=== PATIENT | male | born 1955 | race Caucasian/White ===

== ENCOUNTER → 2019-10-12 | Outpatient (CLI) | payer MEDICARE ==
--- NOTE | 2019-10-12 11:07 | CT ---
EXAMINATION TYPE: CT brain wo con DATE OF EXAM: 10/12/2019 COMPARISON: None HISTORY: Fall CT DLP: 1064.30 mGycm Automated exposure control for dose reduction was used. FINDINGS: There is a soft tissue edema overlying the posterior right parietal lobe. Calvarium intact. No acute fracture. There is mild to moderate generalized degenerative change. Intracranial atherosclerotic changes noted . Low-attenuation the white matter is nonspecific but most typical remote microvascular ischemia. Kingsley cification the central sulcus on the right noted. Likely related to atherosclerotic changes. IMPRESSION: DEGENERATIVE AND NONSPECIFIC WHITE MATTER CHANGES WITH A SOFT TISSUE HEMATOMA OVERLYING THE RIGHT PAR IETAL BONE POSTERIORLY BUT NO EVIDENCE OF ACUTE FRACTURE OR ACUTE INTRACRANIAL HEMORRHAGE.
== END | disposition home or self-care (01) ==
LOC: RADCTMAIN 10:30
PROVIDERS: ATTEND Internal Medicine
DX: R90.82 White matter disease, unspecified (principal); M79.81 Nontraumatic hematoma of soft tissue
CPT/HCPCS: 70450

== ENCOUNTER 2020-12-26 18:52 | Inpatient (IN) | payer MEDICARE ==
--- NOTE | 2020-12-26 19:02 | ED ---
General Adult HPI - General Stated complaint: cva Time Seen by Provider: 12/26/20 18:55 Source: RN notes reviewed, old records reviewed - History of Present Illness Initial comments: Patient is a 65-year-old male with past medical history remarkable for muscular dystrophy presents emergency Department complaining of strokelike symptoms. EMS called before hand stated the patient had left sided facial droop, left-sided weakness with last known well of approximately 5:45 PM. He was with family when he became weak on the left side and slumped over the left. He did not lose consciousness. Did not fall or hit his head. He is not blood thinners. They became concerned and called EMS for transfer to the hospital. Blood sugar and route was within normal limits. They did notice it is mildly hypoxic and he does have a history of poorly controlled COPD. They gave him breathing treatments are minimally action and he responded well. He was wheezing bilateral lung mon. Patient currently has full capacity is alert and oriented 4. He has no other acute complaint at this time other than some complaints of wheezing as well as the weakness. Immediately upon arrival, stroke page was activated and patient was taken to CT for imaging. He has no known history of AV malformation, no blood thinners, no intracranial surgery, no history of head bleeds. No known contraindications for TPA, and he is a candidate at this time. - Related Data Home Medications Medication Instructions Recorded Confirmed Albuterol Inhaler [Ventolin Hfa 2 puff INHALATION RT-QID PRN 12/26/20 12/26/20 Inhaler] Methylphenidate HCl 20 mg PO BID 12/26/20 12/26/20 Omeprazole [PriLOSEC] 20 mg PO DAILY 12/26/20 12/26/20 Allergies Allergy/AdvReac Type Severity Reaction Status Date / Time No Known Allergies Allergy Verified 12/26/20 20:51 Review of Systems ROS Statement: Those systems with pertinent positive or pertinent negative responses have been documented in the HPI. Review of Systems: CONST: Denies fever EYES: Denies blurry vision ENT: Denies nasal congestion C/V: Denies Chest pain RESP: Endorses shortness of breath GI: Denies abdominal pain : Denies dysuria SKIN: Denies rash. MSK: Denies joint pain. NEURO: Endorses weakness ROS Other: All systems not noted in ROS Statement are negative. General Exam - General Exam Comments Initial Comments: General: Patient has left-sided weakness with obvious left sided facial droop and dysarthria. HEAD: Normal with no signs of head trauma. EYES: PERRLA, EOMI, conjunctiva normal, no discharge. Pupils are 3 mm and equal bilaterally. ENT: Hearing grossly intact, normal oropharynx. RESPIRATORY: Patient has bilateral end expiratory wheezing. There is minimal increased work of breathing. Patient is protecting his airway. C/V: Patient is tachycardic intermittently with an irregular rhythm. S1 and S2 auscultated. Peripheral pulses are 2+ and intact throughout. No peripheral edema. ABD: Abd is soft, nontender, nondistended EXT: No obvious deformity. SKIN: No rashes or lesions observed on exposed skin. NEURO: Alert and oriented 4. NIH stroke scale is approximately 5, 1 for partial gaze palsy, 2 points for partial paralysis of the lower face, 1 for left arm motor drift, and 1 for dysarthria. Patient is protecting his airway. GCS is 15. Course Vital Signs 12/26/20 12/26/20 12/26/20 19:10 19:15 19:21 Temperature 97.8 F Pulse Rate 87 80 95 Respiratory 20 20 20 Rate Blood Pressure 171/123 175/122 175/122 O2 Sat by Pulse 92 L 92 L 93 L Oximetry 12/26/20 12/26/20 12/26/20 19:30 19:35 19:50 Temperature Pulse Rate 85 85 87 Respiratory 20 18 18 Rate Blood Pressure 170/113 146/83 123/104 O2 Sat by Pulse 93 L 94 L 94 L Oximetry 12/26/20 12/26/20 12/26/20 20:00 20:15 20:30 Temperature Pulse Rate 85 94 92 Respiratory 18 20 20 Rate Blood Pressure 130/105 140/84 137/114 O2 Sat by Pulse 94 L 94 L 94 L Oximetry 12/26/20 12/26/20 12/26/20 20:45 21:00 21:02 Temperature Pulse Rate 90 87 86 Respiratory 18 20 Rate Blood Pressure 137/94 147/98 O2 Sat by Pulse 95 95 Oximetry 12/26/20 21:16 Temperature Pulse Rate 94 Respiratory Rate Blood Pressure O2 Sat by Pulse Oximetry Medical Decision Making - Medical Decision Making Based on the patient's presentation and physical exam, I'm concerned for acute stroke like symptoms and the patient. Stroke pager was immediately activated. He was taken to CT for imaging. I spoke with Dr. Riggins regarding the patient, and he was in agreement that the patient is a TPA candidate. He will review the imaging and evaluated the patient via the stroke camera. Stroke labs were ordered. He'll be connected to continuous cardiac monitoring. Patient's primary care blood sugar was within normal limits. EKG was in one view chest x- ray will be ordered. For COPD exacerbation, patient will be given steroids as well as DuoNeb breathing treatments. Patient's EKG shows new onset atrial fibrillation versus atrial flutter. No signs of acute ischemia at this time. Patient's CT head imaging revealed no acute intracranial process. Patient's CTA head revealed stenosis of the left proximal M1 segment with unremarkable right middle cerebral artery involvement. I spoke with Dr. Pinto and evaluated the patient. He was in agreement that the patient meets criteria for TPA administration. I ordered tPA. Patient will be given a dose of 10 mg IV labetalol and a new cardiac drip probably hung with systolics less than 170 and diastolic less than 110. Patient's blood pressure improved with the labetalol. TPA was hung at 1935. Remainder the patient's laboratory studies returned after this and were remarkable for a negative troponin. Patient appears to have a mild UTI and therefore will be started on Rocephin with positive urine nitrites, trace leukoesterase, and 4 wbc's. UDS is positive for marijuana. Negative for alcohol. Patient's covid Negative. Patient's chest x-ray revealed no acute cardiopulmonary process. On reevaluation following tPA administration, patient's NIH stroke scale remains 5. There are no new deficits been no improvement deficits. Wheezing has somewhat improved. I did discuss with him that he will be admitted to ICU and he was in agreement this plan. I updated family members as well and they were in agreement this plan. I spoke the ICU attending, Dr. Vasquez who accepted the patient. I spoke with Dr. Mcnulty of neurology will evaluate the patient tomorrow. Due to patient's new onset A. fib and a flutter, we will also consult to cardiology team. I spoke with the admitting team under Dr. Garza who was in agreement with the plan. Patient was therefore admitted to the medical ICU in serious condition. - Lab Data Result diagrams: 12/26/20 19:16 12/26/20 19:16 Lab Results 12/26/20 12/26/20 12/26/20 Range/Units 19:16 19:16 19:16 WBC 7.7 (3.8-10.6) k/uL RBC 5.17 (4.30-5.90) m/uL Hgb 16.9 (13.0-17.5) gm/dL Hct 51.4 (39.0-53.0) % MCV 99.3 (80.0-100.0) fL MCH 32.6 (25.0-35.0) pg MCHC 32.8 (31.0-37.0) g/dL RDW 13.7 (11.5-15.5) % Plt Count 175 (150-450) k/uL MPV 9.2 Neutrophils % 48 % Lymphocytes % 40 % Monocytes % 6 % Eosinophils % 2 % Basophils % 1 % Neutrophils # 3.7 (1.3-7.7) k/uL Lymphocytes # 3.1 (1.0-4.8) k/uL Monocytes # 0.5 (0-1.0) k/uL Eosinophils # 0.1 (0-0.7) k/uL Basophils # 0.0 (0-0.2) k/uL PT 11.1 (9.0-12.0) sec INR 1.0 (<1.2) APTT 22.4 (22.0-30.0) sec Sodium (137-145) mmol/L Potassium (3.5-5.1) mmol/L Chloride (98-107) mmol/L Carbon Dioxide (22-30) mmol/L Anion Gap mmol/L BUN (9-20) mg/dL Creatinine (0.66-1.25) mg/dL Est GFR (CKD-EPI)AfAm (>60 ml/min/1.73 sqM) Est GFR (CKD-EPI)NonAf (>60 ml/min/1.73 sqM) Glucose (74-99) mg/dL Calcium (8.4-10.2) mg/dL Total Bilirubin (0.2-1.3) mg/dL AST (17-59) U/L ALT (4-49) U/L Alkaline Phosphatase (38-126) U/L Troponin I (0.000-0.034) ng/mL Total Protein (6.3-8.2) g/dL Albumin (3.5-5.0) g/dL Urine Color Light Yellow Urine Appearance Clear (Clear) Urine pH 6.0 (5.0-8.0) Ur Specific [place] 1.016 (1.001-1.035) Urine Protein Negative (Negative) Urine Glucose (UA) Negative (Negative) Urine Ketones Negative (Negative) Urine Blood Negative (Negative) Urine Nitrite Positive (Negative) Urine Bilirubin Negative (Negative) Urine Urobilinogen <2.0 (<2.0) mg/dL Ur Leukocyte Esterase Trace H (Negative) Urine WBC 4 (0-5) /hpf Ur Squamous Epith Cells <1 (0-4) /hpf Urine Bacteria Occasional H (None) /hpf Urine Opiates Screen Not Detected (NotDetected) Ur Oxycodone Screen Not Detected (NotDetected) Urine Methadone Screen Not Detected (NotDetected) Ur Propoxyphene Screen Not Detected (NotDetected) Ur Barbiturates Screen Not Detected (NotDetected) U Tricyclic Antidepress Not Detected (NotDetected) Ur Phencyclidine Scrn Not Detected (NotDetected) Ur Amphetamines Screen Not Detected (NotDetected) U Methamphetamines Scrn Not Detected (NotDetected) U Benzodiazepines Scrn Not Detected (NotDetected) Urine Cocaine Screen Not Detected (NotDetected) U Marijuana (THC) Screen Detected H (NotDetected) Serum Alcohol mg/dL Coronavirus (PCR) (Not Detectd) 12/26/20 12/26/20 12/26/20 Range/Units 19:16 19:16 19:41 WBC (3.8-10.6) k/uL RBC (4.30-5.90) m/uL Hgb (13.0-17.5) gm/dL Hct (39.0-53.0) % MCV (80.0-100.0) fL MCH (25.0-35.0) pg MCHC (31.0-37.0) g/dL RDW (11.5-15.5) % Plt Count (150-450) k/uL MPV Neutrophils % % Lymphocytes % % Monocytes % % Eosinophils % % Basophils % % Neutrophils # (1.3-7.7) k/uL Lymphocytes # (1.0-4.8) k/uL Monocytes # (0-1.0) k/uL Eosinophils # (0-0.7) k/uL Basophils # (0-0.2) k/uL PT (9.0-12.0) sec INR (<1.2) APTT (22.0-30.0) sec Sodium 138 (137-145) mmol/L Potassium 4.0 (3.5-5.1) mmol/L Chloride 107 (98-107) mmol/L Carbon Dioxide 24 (22-30) mmol/L Anion Gap 7 mmol/L BUN 14 (9-20) mg/dL Creatinine 0.66 (0.66-1.25) mg/dL Est GFR (CKD-EPI)AfAm >90 (>60 ml/min/1.73 sqM) Est GFR (CKD-EPI)NonAf >90 (>60 ml/min/1.73 sqM) Glucose 112 H (74-99) mg/dL Calcium 9.1 (8.4-10.2) mg/dL Total Bilirubin 0.8 (0.2-1.3) mg/dL AST 82 H (17-59) U/L ALT 47 (4-49) U/L Alkaline Phosphatase 86 (38-126) U/L Troponin I <0.012 (0.000-0.034) ng/mL Total Protein 7.3 (6.3-8.2) g/dL Albumin 3.4 L (3.5-5.0) g/dL Urine Color Urine Appearance (Clear) Urine pH (5.0-8.0) Ur Specific [place] (1.001-1.035) Urine Protein (Negative) Urine Glucose (UA) (Negative) Urine Ketones (Negative) Urine Blood (Negative) Urine Nitrite (Negative) Urine Bilirubin (Negative) Urine Urobilinogen (<2.0) mg/dL Ur Leukocyte Esterase (Negative) Urine WBC (0-5) /hpf Ur Squamous Epith Cells (0-4) /hpf Urine Bacteria (None) /hpf Urine Opiates Screen (NotDetected) Ur Oxycodone Screen (NotDetected) Urine Methadone Screen (NotDetected) Ur Propoxyphene Screen (NotDetected) Ur Barbiturates Screen (NotDetected) U Tricyclic Antidepress (NotDetected) Ur Phencyclidine Scrn (NotDetected) Ur Amphetamines Screen (NotDetected) U Methamphetamines Scrn (NotDetected) U Benzodiazepines Scrn (NotDetected) Urine Cocaine Screen (NotDetected) U Marijuana (THC) Screen (NotDetected) Serum Alcohol <10 mg/dL Coronavirus (PCR) Not Detected (Not Detectd) - EKG Data -: EKG Interpreted by Me EKG Comments: 12-lead Electrocardiogram Interpretation Note EKG was reviewed and interpreted by myself. 12-lead ECG performed at 1921 is interpreted by me as revealing atrial fibrillation versus atrial flutter at a rate of 96 beats per minute. [place] is normal. IA interval is unobtainable, QR gnosticism is 102 ms, QTc is 469 ms. [There were no ST or T wave abnormalities to suggest myocardial ischemia or injury]. [R wave progression across the precordium was satisfactory]. [By my interpretation this EKG is non-diagnostic for acute ischemia]. Reveals new-onset intrafibrillation versus a flutter. Critical Care Time Critical Care Time: Yes Total Critical Care Time: 35 Critical Care Time: Upon my evaluation, this patient had a high probability of imminent or life- threatening deterioration due to CVA, which required my direct attention, intervention, and personal management. I have personally provided 35 minutes of critical care time exclusive of time spent on separately billable procedures. Time includes review of laboratory data, radiology results, discussion with consultants, and monitoring for potential decompensation. Interventions were performed as documented in my note. Disposition Clinical Impression: Cerebrovascular accident (CVA), COPD exacerbation, Atrial flutter, UTI (urinary tract infection), Received intravenous tissue plasminogen activator (tPA) in emergency department Disposition: ADMITTED IP TO THIS HOSP Condition: Serious
[2020-12-26] MEDS ORDERED: methylPREDNISolone SOD SUCCI 125 MG/2 ML VIAL IV STA (19:16)
[2020-12-26] MEDS ORDERED: Alteplase PER PHARMACY Stroke 1 EACH MISC MISCELLANE PRN (19:20)
[2020-12-26] MEDS ORDERED: LABETALOL 5 MG/ML VIAL MDV IVP STA (19:20)
[2020-12-26] MEDS ORDERED: ALTEPLASE 58 MG in EMPTY BAG 1 BAG IV STA (19:28)
[2020-12-26] MEDS ORDERED: ALTEPLASE BOLUS FOR STROKE 6 MG in EMPTY SYRINGE 1 SYR IV STA (19:28)
[2020-12-26 19:29] LABS: Basophils % (A) 1 %; Eosinophils # (A) 0.1 k/uL (0-0.7); Eosinophils % (A) 2 %; HCT 51.4 % (39.0-53.0); HGB 16.9 gm/dL (13.0-17.5); Lymphocytes # (A) 3.1 k/uL (1.0-4.8); Lymphocytes % (A) 40 %; MCH 32.6 pg (25.0-35.0); MCHC 32.8 g/dL (31.0-37.0); MCV 99.3 fL (80.0-100.0); Mean Platelet Volume 9.2; Monocytes # (A) 0.5 k/uL (0-1.0); Monocytes % (A) 6 %; Neutrophils # (A) 3.7 k/uL (1.3-7.7); Neutrophils % (A) 48 %; Platelet Count 175 k/uL (150-450); RBC 5.17 m/uL (4.30-5.90); RDW 13.7 % (11.5-15.5); WBC 7.7 k/uL (3.8-10.6)
[2020-12-26 19:40] LABS: ALT 47 U/L (4-49); AST 82 U/L (17-59); African American GFR (CKD) >90 (>60 ml/min/1.73 sqM); Albumin 3.4 g/dL (3.5-5.0); Alcohol <10 mg/dL; Alkaline Phosphatase 86 U/L (38-126); Anion Gap 7 mmol/L; Blood Urea Nitrogen 14 mg/dL (9-20); Calcium 9.1 mg/dL (8.4-10.2); Carbon Dioxide 24 mmol/L (22-30); Chloride 107 mmol/L (98-107); Glucose 112 mg/dL (74-99); Non-African American GFR(CKD) >90 (>60 ml/min/1.73 sqM); Sodium 138 mmol/L (137-145); Total Bilirubin 0.8 mg/dL (0.2-1.3); Total Protein 7.3 g/dL (6.3-8.2)
[2020-12-26 19:49] LABS: Partial Thromboplastin Time 22.4 sec (22.0-30.0); Prothrombin Time 11.1 sec (9.0-12.0)
--- NOTE | 2020-12-26 19:51 | CT ---
EXAMINATION TYPE: CT brain wo con for TPA DATE OF EXAM: 12/26/2020 COMPARISON: October 12 2019 HISTORY: possible stroke CT DLP: 1117.8 mGycm Automated exposure control for dose reduction was used. FINDINGS: No acute intracranial hemorrhage, large vessel territory infarct, mass, mass effect or midline shift. No hydrocephalus or extra-axial fluid collection. The ventricles and sulci are concordant. There is cerebral volume retraction that is age appropriate. Mild hypodensity of the anterior inferior frontal lobe which could relate to old traumatic brain injury. Mild hypodensity of the periventricular and s ubcortical white matter is nonspecific but likely relates to ischemic microangiopathic change. No oss eous abnormality. The visualized sinuses and air cells are well-developed and pneumatized. There is a partially visualized focus of gas in a right pre-maxillary vessel which could relate to ve nous air embolus. IMPRESSION: SENESCENT CHANGES WITHOUT AN ACUTE INTRACRANIAL PROCESS.
--- NOTE | 2020-12-26 20:09 | CT ---
EXAMINATION TYPE: CT angio head neck DATE OF EXAM: 12/26/2020 HISTORY: Acute neuro deficit. COMPARISON: None CT DLP: 521 mGycm. Automated Exposure Control for Dose Reduction was Utilized. TECHNIQUE: CTA scan of the neck is performed with IV Contrast, patient injected with 65 mL of Isovue 370, axial images are obtained, coronal and sagittal reformatted images are reviewed. 3D reconstruct ed images are created on an independent workstation and reviewed. FINDINGS: Carotid/Vascular Structures: Classic arch anatomy. Atherosclerotic disease at the origin of the arch vessels without significant stenosis. Atherosclerotic disease at the origin of the left vertebral art kristie without significant stenosis. Stroke and intracranial vertebral arteries have a normal course and caliber. The left vertebral artery is dominant. Basilar artery and its proximal branches are patent. Atherosclerotic disease of the carotid bifurcations without significant stenosis. Mixed atherosclero tic plaque of the distal cervical ICA with less than 50% stenosis of the distal right FARA just before the vessel enters the petrous bone. Atherosclerosis of the carotid siphons without significant steno sis. There is focal high-grade stenosis of the left proximal M1 segment. The right MCA, bilateral ACAs and camp manager are unremarkable. No aneurysm. The dural venous sinuses cerebral veins are patent. No intracranial enhancement. Other: 0.7cm cystic structure in the left preauricular area present a sebaceous cyst. Diffuse hazy op acity and emphysematous changes at the lung apices. IMPRESSION: 1. Focal high-grade stenosis of the left proximal M1 segment. 2. The right middle cerebral artery and the bilateral ACAs and camp manager are unremarkable. 3. No large vessel occlusion or aneurysm in the head or neck. NASCET criteria was used in interpretation of this exam?
[2020-12-26] MEDS ORDERED: SODIUM CHLORIDE 0.9% 50 ML MINI-BAG IV ONE ×2 (20:29→21:26)
[2020-12-26 20:36] LABS: Appearance,Urine Clear (Clear); Bacteria,Urine Occasional /hpf; Bilirubin,Urine Negative (Negative); Blood,Urine Negative (Negative); Color,Urine Light Yellow; Glucose,Urine (UA) Negative (Negative); Ketones,Urine Negative (Negative); Leukocyte Esterase,Urine Trace (Negative); Nitrite,Urine Positive (Negative); Protein,Urine Negative (Negative); Specific Gravity,Urine 1.016 (1.001-1.035); Squamous Epithelial Cell,Urine <1 /hpf (0-4); Urobilinogen,Urine <2.0 mg/dL (<2.0); WBC,Urine 4 /hpf (0-5)
[2020-12-26 20:48] LABS: Amphetamine Screen,Urine Not Detected (NotDetected); Barbiturate Screen,Urine Not Detected (NotDetected); Benzodiazepines Screen,Urine Not Detected (NotDetected); Cocaine Screen,Urine Not Detected (NotDetected); Methadone Screen, Urine Not Detected (NotDetected); Opiate Screen,Urine Not Detected (NotDetected); Oxycodone Screen, Urine Not Detected (NotDetected); Phencyclidine Screen,Urine Not Detected (NotDetected); Tricyclic Antidepressant,Urine Not Detected (NotDetected); Urn Cannabinoid Scrn Detected (NotDetected)
[2020-12-26] MEDS: IPRATROPIUM-ALBUTEROL 3 ML NEB INHALATION PRN (21:02)
--- NOTE | 2020-12-26 21:35 | XR ---
EXAMINATION TYPE: XR chest 1V portable DATE OF EXAM: 12/26/2020 COMPARISON: NONE HISTORY: AMS TECHNIQUE: Single frontal view of the chest is obtained. FINDINGS: Low lung volumes with bibasilar strandy opacities. There is no consolidation, pleural effus ion, or pneumothorax seen. The cardiac silhouette size is within normal limits. The osseous struct ures are intact. IMPRESSION: Bibasilar subsegmental atelectasis.
[2020-12-26] MEDS: niCARdipine 20 MG in SODIUM CHLORIDE 0.9% 192 ML IV SCH ×2 (23:46→23:52)
[2020-12-27] MEDS ORDERED: IPRATROPIUM-ALBUTEROL 3 ML NEB INHALATION SCH
[2020-12-27] MEDS: IPRATROPIUM-ALBUTEROL 3 ML NEB INHALATION PRN (00:27)
[2020-12-27] MEDS ORDERED: ALPRAZolam 0.5 MG TAB PO PRN (00:47)
[2020-12-27] MEDS: methylPREDNISolone SOD SUCCI 40 MG/ML 1 ML VIAL IV SCH (00:57)
[2020-12-27] MEDS ORDERED: LORazepam 2 MG/ML INJ IV PRN ×2 (00:58)
--- NOTE | 2020-12-27 00:58 | P.HPIM ---
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 Some weakness at baseline and his lower extremities but he is able to walk independently sometimes have difficulties get up from a sitting position However today seems like he was sitting on a couch when suddenly started asking for help came by and found him on the floor unable to get up which is unusual for him, he had slurred speech too. This is unusual for him she called 911 and brought him to the hospital this is around 6 PM patient was evaluated in the ER code stroke called, patient had an NIH score of 5 foot left-sided weakness, neurology recommended giving the patient TPA, CT angiogram of the head and neck showed no large vessel occlusion or aneurysm, focal high-grade stenosis of the left proximal M1, CT of the head showed no acute process Patient tolerated TPA currently on Cardene drip to control his blood pressure patient will be admitted for monitoring overnight in the ICU post TPA In the ED was also found to have new onset atrial fibrillation Patient otherwise denies any fevers chills chest pain trouble breathing abdominal pain nausea vomiting changes in his bowel or urinary habits He does not seem to have been improved much after the TPA is still has flaccid paralysis of the left upper extremity and hard time lifting his head as he feels weak on the left side and leaning against left side on the bed Review of Systems Pertinent positives as noted in HPI. All other systems were reviewed and are negative Past Medical History Additional Past Medical History / Comment(s): Myotonic muscular dystrophy, GERD, COPD - Past Family History family Additional Family Medical History / Comment(s): Myotonic muscular dystrophy Medications and Allergies Home Medications Medication Instructions Recorded Confirmed Type Albuterol Inhaler [Ventolin Hfa 2 puff INHALATION RT-QID PRN 12/26/20 12/26/20 History Inhaler] Methylphenidate HCl 20 mg PO BID 12/26/20 12/26/20 History Omeprazole [PriLOSEC] 20 mg PO DAILY 12/26/20 12/26/20 History Allergies Allergy/AdvReac Type Severity Reaction Status Date / Time No Known Allergies Allergy Verified 12/26/20 20:51 Physical Exam Vitals: Vital Signs Temp Pulse Resp BP Pulse Ox 12/27/20 00:35 112 H 12/27/20 00:27 111 H 12/26/20 23:30 90 20 118/83 95 12/26/20 23:00 91 18 137/100 95 12/26/20 22:30 89 20 122/95 94 L 12/26/20 22:00 92 18 129/100 95 12/26/20 21:30 97.7 F 92 18 136/99 95 12/26/20 21:16 94 12/26/20 21:02 86 12/26/20 21:00 87 20 147/98 95 12/26/20 20:45 90 18 137/94 95 12/26/20 20:30 92 20 137/114 94 L 12/26/20 20:15 94 20 140/84 94 L 12/26/20 20:00 85 18 130/105 94 L 12/26/20 19:50 87 18 123/104 94 L 12/26/20 19:35 85 18 146/83 94 L 12/26/20 19:30 85 20 170/113 93 L 12/26/20 19:21 95 20 175/122 93 L 12/26/20 19:15 80 20 175/122 92 L 12/26/20 19:10 97.8 F 87 20 171/123 92 L Intake and Output 12/26/20 12/26/20 12/27/20 14:59 22:59 06:59 Output Total 1000 Balance -1000 Output: Urine 1000 Other: Weight 71.804 kg Constitutional: No acute distress, patient has been difficult to speech however he is cooperative but site Eyes: Anicteric sclerae, moist conjunctiva, Pupils equal round reactive to light ENMT: NC/AT Oropharynx clear, no erythema, or exudates Neck: Supple, no masses, or JVD No carotid bruits No thyromegaly Lungs: Clear to auscultation Clear to percussion Normal respiratory effort, no accessory muscle use Cardiovascular: Heart irregular No murmurs, gallops, or rubs No peripheral edema Abdominal: Soft Nontender, no guarding, rebound or rigidity Abdomen moving with respiration Normoactive bowel sounds No hepatomegaly, No splenomegaly No palpable mass No abdominal wall hernia noted Skin: Normal temperature, tone, texture, turgor No induration No subcutaneous nodules No rash, lesions No ulcers Extremities: No digital cyanosis No clubbing Pedal pulses intact and symmetrical Radial pulses intact and symmetrical No calf tenderness Psychiatric: Alert and oriented to person, place Appropriate affect fair judgement Neuro Muscles Strength 4/5 in all bilateral lower extremities and right upper extremity, flaccid paralysis of the left upper extremity Sensation to light touch grossly present throughout Cranial nerves patient is having some right facial droop, patient also having some difficulties sitting up due to left-sided weakness Lymphatics: no palpable cervical or supraclavicular , or inguinal lymph nodes Results CBC & Chem 7: 12/26/20 19:16 12/26/20 19:16 Labs: Abnormal Lab Results - Last 24 Hours (Table) 12/26/20 12/26/20 12/26/20 Range/Units 19:16 19:16 22:01 Glucose 112 H (74-99) mg/dL AST 82 H (17-59) U/L Troponin I 0.337 H* (0.000-0.034) ng/mL Albumin 3.4 L (3.5-5.0) g/dL Ur Leukocyte Esterase Trace H (Negative) Urine Bacteria Occasional H (None) /hpf U Marijuana (THC) Screen Detected H (NotDetected) Assessment and Plan Assessment: Ischemic stroke status post TPA Monitoring in the ICU Neurochecks Control blood pressure with Cardene drip Neurology consult Repeat computed tomography scan tomorrow after TPA for follow-up Hold aspirin for 24 hours Hold blood thinners for at least 24 hours until neurology clears patient Strict control of blood pressure with Cardene drip maintain systolic blood pressure less than 185 and diastolic less than 110 Check echocardiogram TSH Check A1c Lipid profile Percussion is Swallow evaluation PT eval New onset atrial fibrillation currently rate controlled Cardiology consultation Check echocardiogram GERD IV Protonix COPD currently compensated DuoNeb's when necessary as needed for shortness of breath Smoking cessation counseling Nicotine replacement therapy offered Patient daily drinker of alcohol Monitor for alcohol withdrawal Thiamine History of myoclonic muscular dystrophy Patient is full code Anticipated length of stay more than 2 midnights Anticipated discharge pending clinical course
[2020-12-27] MEDS: LORazepam 2 MG/ML INJ IV PRN (01:10)
[2020-12-27 01:46] LABS: ABG Base Excess 0.8 mmol/L; ABG HCO3 26 mmol/L (21-25); ABG Oxygen Saturation 89.3 % (94-97); ABG PCO2 48 mmHg (35-45); ABG PH 7.35 (7.35-7.45); ABG PO2 60 mmHg (83-108); ABG TCO2 28 mmol/L (19-24); Allen Test Performed? Yes
[2020-12-27] MEDS ORDERED: FLUMAZENIL 0.1 MG/ML 5 ML VIAL IVP STA (01:50)
--- NOTE | 2020-12-27 02:11 | P.PN ---
Progress Note - Text Progress Note Date: 12/27/20 patient was becoming hypoxic and his supplemental oxygen was escalated to non rebreather then bipap, he kept trying to rip off IVs and oxygen , patient was given benzo for agitation and possible alcohol withdrawal then patient became obtunded with worsening hypoxemia patient responded to a dose of flumazinel (had xanax then ativan for agitation and possible alcohol withdrawal ), now he is agitated again with soft restraints of the right upper extremity as he is ripping off IV and oxygen ABG reviewed no hypercapnia, but he is hypoxic he is more awake now but agitate, on bipap , will get bed side sitter and trial of bipap for 1 hour re-evaluate currently oxygen sat 88-92% if remain hypoxic and agitated, will consider intubation will get chest x ray to evaluate for possible aspiration
--- NOTE | 2020-12-27 02:47 | XR ---
EXAMINATION TYPE: XR chest 1V portable DATE OF EXAM: 12/27/2020 COMPARISON: Yesterday HISTORY: Hypoxemia TECHNIQUE: FINDINGS: Heart appears slightly enlarged. There is mild pulmonary congestion. There is probably some infiltrate at both lung bases. There are chest leads. There is moderate arthritic change in the shou lder joints. IMPRESSION: There is increased infiltrate and atelectasis in the lower lobes compared to yesterday. P ulmonary vascularity also increased. No obvious heart failure.
[2020-12-27 02:48] LABS: Glucose,Whole Blood 167 mg/dL (75-99)
[2020-12-27] MEDS: niCARdipine 20 MG in SODIUM CHLORIDE 0.9% 192 ML IV SCH (05:30)
[2020-12-27] MEDS: IPRATROPIUM-ALBUTEROL 3 ML NEB INHALATION SCH ×4 (07:44→19:31)
[2020-12-27 09:30] LABS: Glucose,Whole Blood 174 mg/dL (75-99)
--- NOTE | 2020-12-27 13:02 | P.CNPUL ---
History of Present Illness Consult date: 12/27/20 Requesting physician: Victorino Garza Reason for consult: other Chief complaint: CVA. History of present illness: Pulmonary/critical care consult dated 12/27/2020. 65-year-old male, with a history of muscular dystrophy, who presents to the emergency department, with complaints of slurred speech, left-sided weakness, and left-sided facial droop. He apparently was found by his family, as he b ecame weak on the left side, and slumped over to the left. There was no loss of consciousness. He did not hit his head. He was seen in the emergency room, and felt to be a good candidate for the administration of TPA. He got TPA 7:30 PM on December 26. For further observation and management, the patient was transferred to the intensive care unit. The patient is currently on BiPAP, with settings of IPAP 12, EPAP 6, and 100%. The patient not receiving any IV fluids. His drug screen was positive for tetrahydrocannabinol. The patient has no ALLERGIES, and apparently was only on an albuterol inhaler, methylphenidate, and omeprazole as an outpatient. CBC was completely normal. ETT, INR, and PTT were normal. Arterial blood gases on 100% showed a pO2 of 60, pCO2 48, and a pH is 7.35. Sodium 138, potassium 4, chlorides 107, CO2 24, anion gap 7, BUN 14, creatinine 0.66. Patient's glucose is 112, and troponins were 0.337, and 0.552. Urine showed trace leukocyte esterase, positive nitrite, 4 WBCs, and occasional bacteria. Brain CT was negative for anything acute. Chest x-ray was consistent with increased infiltrate and/or atelectasis in the lower lobes, with increased pulmonary vascularity. CT angiography showed focal high-grade stenosis of the left proximal M1 segment, and unremarkable right middle cerebral artery and bilateral anterior and posterior circulating arteries. Review of Systems REVIEW OF SYSTEMS: CONSTITUTIONAL: Patient very lethargic, thought to be related to the administration of Xanax and Ativan. NEUROLOGIC: Slurred speech, left facial droop, and left-sided weakness. HEENT: [ Negative.] CARDIAC: [Negative.] PULMONARY: [Negative.] GI: [Negative.] : [Negative.] RHEUMATOLOGIC: [ Negative.] IMMUNOLOGIC: [ Negative.] ENDOCRINE: [Negative. ] DERMATOLOGIC: [Negative.] Past Medical History Additional Past Medical History / Comment(s): Myotonic muscular dystrophy, GERD, COPD - Past Family History family Family Medical History: No Reported History Additional Family Medical History / Comment(s): Myotonic muscular dystrophy Medications and Allergies Home Medications Medication Instructions Recorded Confirmed Type Albuterol Inhaler [Ventolin Hfa 2 puff INHALATION RT-QID PRN 12/26/20 12/26/20 History Inhaler] Methylphenidate HCl 20 mg PO BID 12/26/20 12/26/20 History Omeprazole [PriLOSEC] 20 mg PO DAILY 12/26/20 12/26/20 History Allergies Allergy/AdvReac Type Severity Reaction Status Date / Time No Known Allergies Allergy Verified 12/26/20 20:51 Physical Exam Osteopathic Statement: *. No significant issues noted on an osteopathic structural exam other than those noted in the History and Physical/Consult. Vitals: Vital Signs Temp Pulse Resp BP Pulse Ox 12/27/20 11:53 102 H 12/27/20 11:39 98 12/27/20 09:50 105 H 31 H 89 L 12/27/20 09:40 117 H 34 H 145/116 87 L 12/27/20 09:30 33 H 91 L 12/27/20 09:27 98.9 F 115 H 24 91 L 12/27/20 09:04 115 H 18 139/95 90 L 12/27/20 07:54 120 H 12/27/20 07:45 112 H 16 128/87 91 L 12/27/20 07:44 118 H 12/27/20 07:15 110 H 20 139/96 92 L 12/27/20 06:01 93 20 136/86 93 L 12/27/20 05:00 99 22 130/100 91 L 12/27/20 04:00 98 18 124/92 94 L 12/27/20 03:00 94 25 H 126/90 93 L 12/27/20 02:47 97 22 126/80 92 L 12/27/20 02:00 130 H 18 139/100 91 L 12/27/20 00:50 101 H 35 H 120/65 88 L 12/27/20 00:40 122 H 24 126/99 12/27/20 00:35 112 H 12/27/20 00:27 111 H 12/27/20 00:20 83 L 12/26/20 23:30 90 20 118/83 95 12/26/20 23:00 91 18 137/100 95 12/26/20 22:30 89 20 122/95 94 L 12/26/20 22:00 92 18 129/100 95 12/26/20 21:30 97.7 F 92 18 136/99 95 12/26/20 21:16 94 12/26/20 21:02 86 12/26/20 21:00 87 20 147/98 95 12/26/20 20:45 90 18 137/94 95 12/26/20 20:30 92 20 137/114 94 L 12/26/20 20:15 94 20 140/84 94 L 12/26/20 20:00 85 18 130/105 94 L 12/26/20 19:50 87 18 123/104 94 L 12/26/20 19:35 85 18 146/83 94 L 12/26/20 19:30 85 20 170/113 93 L 12/26/20 19:21 95 20 175/122 93 L 12/26/20 19:15 80 20 175/122 92 L 12/26/20 19:10 97.8 F 87 20 171/123 92 L Intake and Output 12/26/20 12/27/20 12/27/20 22:59 06:59 14:59 Output Total 1000 Balance -1000 Output: Urine 1000 Other: Weight 71.804 kg No acute distress, very lethargic and sleepy, currently on BiPAP. Saturations are 100%. HEENT examination is grossly unremarkable. Left facial droop. Neck supple. Full range of motion. No adenopathy thyromegaly or neck vein distention. Cardiovascular examination reveals regular rhythm rate. S1-S2 normal. No S3 or S4. No discernible murmur noted. Heart sounds are distant. Heart rate 102 bpm. Lungs reveal scattered bilateral rhonchi. No wheezes or crackles. Breath sounds equal bilaterally. Abdomen soft bowel sounds are heard. No masses or tenderness. Extremities are intact. No cyanosis clubbing or edema. Skin is very dry. Neurologic examination is difficult to assess. Appears not to be moving the left side, left upper extremity more than left lower extremity. Results - Laboratory Findings CBC and BMP: 12/26/20 19:16 12/26/20 19:16 ABG ABG pH 7.35 (7.35-7.45) 12/27/20 01:44 ABG pCO2 48 mmHg (35-45) H 12/27/20 01:44 ABG pO2 60 mmHg (83-108) L 12/27/20 01:44 ABG O2 Saturation 89.3 % (94-97) L 12/27/20 01:44 PT/INR, D-dimer PT 11.1 sec (9.0-12.0) 12/26/20 19:16 INR 1.0 (<1.2) 12/26/20 19:16 Abnormal lab findings: Abnormal Labs 12/26/20 12/26/20 12/26/20 19:16 19:16 22:01 ABG pCO2 ABG pO2 ABG HCO3 ABG Total CO2 ABG O2 Saturation Glucose 112 H POC Glucose (mg/dL) AST 82 H Troponin I 0.337 H* Albumin 3.4 L Ur Leukocyte Esterase Trace H Urine Bacteria Occasional H U Marijuana (THC) Screen Detected H 12/27/20 12/27/20 12/27/20 00:47 01:44 02:47 ABG pCO2 48 H ABG pO2 60 L ABG HCO3 26 H ABG Total CO2 28 H ABG O2 Saturation 89.3 L Glucose POC Glucose (mg/dL) 167 H AST Troponin I 0.552 H* Albumin Ur Leukocyte Esterase Urine Bacteria U Marijuana (THC) Screen 12/27/20 09:28 ABG pCO2 ABG pO2 ABG HCO3 ABG Total CO2 ABG O2 Saturation Glucose POC Glucose (mg/dL) 174 H AST Troponin I Albumin Ur Leukocyte Esterase Urine Bacteria U Marijuana (THC) Screen - Diagnostic Findings Chest x-ray: image reviewed Assessment and Plan Assessment: Acute CVA, with slurred speech, left facial droop, and left-sided weakness, S/P TPA. History of gastroesophageal reflux disease. History of myotonic muscular dystrophy. History of gastroesophageal reflux disease. New-onset atrial fibrillation. History of ongoing tobacco use with nicotine addiction, with possible underlying COPD. History of alcohol abuse, rule out alcohol withdrawal syndrome. Plan: Plan dated 12/25/2020. The patient has been seen by neurology. Patient is currently reasonably stable although his oxygen requirements are quite high. The patient may have a spirated. We'll continue to watch him closely. Current saturations are 100%. FiO2 can be weaned. We will continue to follow make recommendations where appropriate. The patient is currently on ceftriaxone for possible urinary tract infection. He is also receiving Ativan in case there is any evidence of alcohol withdrawal syndrome. Additional recommendations and suggestions are forthcoming. Time with Patient: Greater than 30
--- NOTE | 2020-12-27 14:48 | P.CNNES ---
History of Present Illness Consult date: 12/27/20 Requesting physician: Gavino Kam Reason for Consult: CVA with TPA History of Present Illness: This is a tele-neurology consultation performed today on 12/27/2020. Patient is a 65-year-old male with history of myotonic muscular dystrophy came to the hospital by ambulance yesterday at 6:52 PM. EMS flow sheet not available in the chart. Patient not able to provide any history. According to the electronic medical records patient was brought to the hospital for strokelike symptoms. Patient was noted to have left-sided facial droop, left-sided weakness with last known well of approximately 5:45 PM (slightly over 1 hour prior to arrival) patient was with his family when he became weak on the left side and slumped over the left. He did not lose consciousness. He did not fall or hit his head. Patient not on any blood thinners. EMS was called. Blood sugar was reported as normal. Patient was noted to be mildly hypoxic but he does have a history of poorly controlled COPD. Patient's vital signs on arrival blood pressure 171/123, pulse rate 87, temperature 97.8. Patient's blood test shows normal CBC, PT/PTT, normal electrolytes, AST is 82, ALT 47. Troponin initially was negative, but has gone up to 0.337. UA negative. Urine drug screen is positive for marijuana. Blood alcohol level negative. Vickers virus PCR negative. Patient's computed tomography scan of the head showed sinus and changes without acute process. CTA of head showed focal high-grade stenosis of the left proximal M1 segment. The right middle cerebral artery in bilateral ACAs and ballast cleaning operator are unremarkable. CTA of the neck showed no large vessel occlusion or aneurysm in the neck or head. EKG shows atrial fibrillation with rapid ventricular rate. Subsequent EKG shows atrial flutter. Chest x-ray shows bibasilar segmental atelectasis. Repeat x- ray showed increased infiltrate and atelectasis in the lower lobes compared to yesterday. Pulmonary vascularity also increased. Patient was evaluated by stroke neurologist Dr. Akhtar, and was noted to have NIH stroke scale of 5. Patient's blood pressure was elevated for which he was given labetalol. Patient received TPA with bolus dose receiving at 7:35 PM. Patient was admitted to ICU. Overnight patient was somewhat agitated, irritated, for which he received Ativan and Xanax. Patient's oxygen saturation dropped for which she was given Romazicon. At this time patient is on BiPAP. He is saturating at 88-90% with 100% FiO2. Patient's home medications include methylphenidate 20 mg twice a day, omeprazole 20 mg. Review of Systems ROS unobtainable: due to mental status Past Medical History Additional Past Medical History / Comment(s): Myotonic muscular dystrophy, GERD, COPD - Past Family History family Family Medical History: No Reported History Additional Family Medical History / Comment(s): Myotonic muscular dystrophy Medications and Allergies Home Medications Medication Instructions Recorded Confirmed Type Albuterol Inhaler [Ventolin Hfa 2 puff INHALATION RT-QID PRN 12/26/20 12/26/20 History Inhaler] Methylphenidate HCl 20 mg PO BID 12/26/20 12/26/20 History Omeprazole [PriLOSEC] 20 mg PO DAILY 12/26/20 12/26/20 History Allergies Allergy/AdvReac Type Severity Reaction Status Date / Time No Known Allergies Allergy Verified 12/26/20 20:51 Physical Examination - Vital Signs Vital Signs: Vital Signs Temp Pulse Resp BP Pulse Ox 12/27/20 09:04 115 H 18 139/95 90 L 12/27/20 07:54 120 H 12/27/20 07:45 112 H 16 128/87 91 L 12/27/20 07:44 118 H 12/27/20 07:15 110 H 20 139/96 92 L 12/27/20 06:01 93 20 136/86 93 L 12/27/20 05:00 99 22 130/100 91 L 12/27/20 04:00 98 18 124/92 94 L 12/27/20 03:00 94 25 H 126/90 93 L 12/27/20 02:47 97 22 126/80 92 L 12/27/20 02:00 130 H 18 139/100 91 L 12/27/20 00:50 101 H 35 H 120/65 88 L 12/27/20 00:40 122 H 24 126/99 12/27/20 00:35 112 H 12/27/20 00:27 111 H 12/27/20 00:20 83 L 12/26/20 23:30 90 20 118/83 95 12/26/20 23:00 91 18 137/100 95 09/24/21 22:30 89 20 122/95 94 L 12/26/20 22:00 92 18 129/100 95 12/26/20 21:30 97.7 F 92 18 136/99 95 12/26/20 21:16 94 12/26/20 21:02 86 12/26/20 21:00 87 20 147/98 95 12/26/20 20:45 90 18 137/94 95 12/26/20 20:30 92 20 137/114 94 L 12/26/20 20:15 94 20 140/84 94 L 12/26/20 20:00 85 18 130/105 94 L 12/26/20 19:50 87 18 123/104 94 L 12/26/20 19:35 85 18 146/83 94 L 12/26/20 19:30 85 20 170/113 93 L 12/26/20 19:21 95 20 175/122 93 L 12/26/20 19:15 80 20 175/122 92 L 12/26/20 19:10 97.8 F 87 20 171/123 92 L Intake and Output 12/26/20 12/27/20 12/27/20 22:59 06:59 14:59 Output Total 1000 Balance -1000 Output: Urine 1000 Other: Weight 71.804 kg Patient is an elderly male, who is encephalopathic, using BiPAP machine. He is slightly restless. Patient is not following any commands. Patient is obtunded, somewhat encephalopathic. Patient has not spoken to the nurse since he arrived to the ICU. Now he is on BiPAP for hypoxemia. Speech and language functions could not be assessed. Attention, concentration and fund of knowledge is adequate cannot be assessed because of mental status. On cranial examination, pupils are round and reacting to light, visual mon cannot be tested, extraocular muscles cannot be tested because of patient's noncooperation and obtundation and the gaze is midline. Face has left facial droop. Patient at present is using BiPAP. Tongue, palate and other lower cranial nerves cannot be checked. On muscle strength testing, patient does not follow. When his arms are elevated, they dropped down to the bed with equal intensity on both sides. How ever patient's left arm appears flaccid, as he does not move his left arm to painful stimuli. He moves his left leg much better to painful stimuli. He moves the right arm and right leg better for painful stimuli. Deep tendon reflexes are absent. Sensory to touch could not be assessed. Response to painful stimuli as above. Cerebellar function cannot be checked. Tone is overall decreased from muscular dystrophy and bulk of muscles also significantly decreased but distal atrophy of arms and legs. Gait not able to be checked. On general examination, there is no carotid bruit or murmur, S1-S2 audible. Abdomen is soft nontender. Peripheral pulses are present. No edema. Results - Laboratory Findings CBC and BMP: 12/26/20 19:16 12/26/20 19:16 Abnormal Lab Findings: Abnormal Labs 12/26/20 12/26/20 12/26/20 19:16 19:16 22:01 ABG pCO2 ABG pO2 ABG HCO3 ABG Total CO2 ABG O2 Saturation Glucose 112 H POC Glucose (mg/dL) AST 82 H Troponin I 0.337 H* Albumin 3.4 L Ur Leukocyte Esterase Trace H Urine Bacteria Occasional H U Marijuana (THC) Screen Detected H 12/27/20 12/27/20 12/27/20 00:47 01:44 02:47 ABG pCO2 48 H ABG pO2 60 L ABG HCO3 26 H ABG Total CO2 28 H ABG O2 Saturation 89.3 L Glucose POC Glucose (mg/dL) 167 H AST Troponin I 0.552 H* Albumin Ur Leukocyte Esterase Urine Bacteria U Marijuana (THC) Screen Assessment and Plan Assessment: * Acute ischemic CVA probably involving right MCA vascular territory with left hemiplegia. Patient's left facial and brachial region more involved than the leg. Patient is status post TPA. * CTA of head and neck revealed focal high-grade stenosis of the left proximal M1 segment (ipsilateral side of symptoms, therefore possibly asymptomatic). Examination was technically limited, therefore MRI would be a better indicator of symptomatic status. * Myotonic muscular dystrophy * Hypertension * COPD * Elevated cardiac enzymes Plan: * Post-TPA orders initiated. * Continue neuro checks as per order set. * Patient to receive 24 hours post-TPA to rule out any hemorrhagic conversion. * No anti-platelets on anticoagulants for 24 hours post-TPA. * CTA of head and neck showed focal high-grade stenosis of the left proximal M1 segment. Limited neurological examination reveals hemiparesis on the same side, therefore perhaps not symptomatic. Neuro intervention Dr Fajardo aware of the stenosis. * MRI indicated, but patient probably will not be able to tolerate MRI because of his respiratory status and noncooperation. Cannot receive sedatives due to poor pulmonary function. * Cardiology consult pending for new onset atrial flutter fibrillation and elevated cardiac enzymes. * DVT prophylaxis, may use SCDs and heparin subcu 24 hours post-TPA. * Neurology will follow. Time with Patient: Greater than 30
[2020-12-27 14:55] LABS: Chol/HDL Ratio 2.22; LDL Cholesterol,Calculated 96.8 mg/dL (0.0-131.0); VLDL Calculation 20.2 mg/dL (5.00-40.00)
--- NOTE | 2020-12-27 16:55 | P.PN ---
Subjective Progress Note Date: 12/27/20 Patient was seen and evaluated by me this afternoon. He was in the ICU. Patient is very agitated in bed. His at bedside. Patient is currently maintained on BiPAP. He is very confused and not following any commands. Objective - Vital Signs Vital signs: Vital Signs Temp 98.9 F 12/27/20 09:27 Pulse 80 12/27/20 16:28 Resp 31 H 12/27/20 09:50 BP 145/116 12/27/20 09:40 Pulse Ox 89 L 12/27/20 09:50 Intake & Output 12/26/20 12/27/20 12/27/20 18:59 06:59 18:59 Output Total 1000 Balance -1000 Weight 71.804 kg Output: Urine 1000 - Exam General: The patient is confused and restless in bed Eye: there is normal conjunctiva bilaterally. Neck: The neck is supple, there is no JVD. Cardiovascular: Normal S1-S2, no S3-S4, no murmurs. Respiratory: Lungs clear to auscultation bilaterally Gastrointestinal: Abdomen is soft, nontender Musculoskeletal: There is no pedal edema. Skin: Skin is warm and dry - Labs CBC & Chem 7: 12/26/20 19:16 12/26/20 19:16 Labs: Abnormal Lab Results - Last 24 Hours (Table) 12/26/20 12/26/20 12/26/20 Range/Units 19:16 19:16 22:01 ABG pCO2 (35-45) mmHg ABG pO2 (83-108) mmHg ABG HCO3 (21-25) mmol/L ABG Total CO2 (19-24) mmol/L ABG O2 Saturation (94-97) % Glucose 112 H (74-99) mg/dL POC Glucose (mg/dL) (75-99) mg/dL AST 82 H (17-59) U/L Troponin I 0.337 H* (0.000-0.034) ng/mL Albumin 3.4 L (3.5-5.0) g/dL Cholesterol (0-200) mg/dL HDL Cholesterol (40.0-60.0) mg/dL Ur Leukocyte Esterase Trace H (Negative) Urine Bacteria Occasional H (None) /hpf U Marijuana (THC) Screen Detected H (NotDetected) 12/27/20 12/27/20 12/27/20 Range/Units 00:47 00:47 01:44 ABG pCO2 48 H (35-45) mmHg ABG pO2 60 L (83-108) mmHg ABG HCO3 26 H (21-25) mmol/L ABG Total CO2 28 H (19-24) mmol/L ABG O2 Saturation 89.3 L (94-97) % Glucose (74-99) mg/dL POC Glucose (mg/dL) (75-99) mg/dL AST (17-59) U/L Troponin I 0.552 H* (0.000-0.034) ng/mL Albumin (3.5-5.0) g/dL Cholesterol 213 H (0-200) mg/dL HDL Cholesterol 96.0 H (40.0-60.0) mg/dL Ur Leukocyte Esterase (Negative) Urine Bacteria (None) /hpf U Marijuana (THC) Screen (NotDetected) 12/27/20 12/27/20 Range/Units 02:47 09:28 ABG pCO2 (35-45) mmHg ABG pO2 (83-108) mmHg ABG HCO3 (21-25) mmol/L ABG Total CO2 (19-24) mmol/L ABG O2 Saturation (94-97) % Glucose (74-99) mg/dL POC Glucose (mg/dL) 167 H 174 H (75-99) mg/dL AST (17-59) U/L Troponin I (0.000-0.034) ng/mL Albumin (3.5-5.0) g/dL Cholesterol (0-200) mg/dL HDL Cholesterol (40.0-60.0) mg/dL Ur Leukocyte Esterase (Negative) Urine Bacteria (None) /hpf U Marijuana (THC) Screen (NotDetected) Assessment and Plan Assessment: This is a 65-year-old male with complex past medical history significant for underlying muscular dystrophy that presented to the emergency room with sudden onset left-sided weakness and slurred speech. Patient was evaluated in the ER and admitted to the hospital for further management of his medical problems noted below. 1. Acute ischemic stroke with left hemiplegia, status post TPA in the emergency room. Computed tomography scan on presentation showed no acute intracranial findings awaiting repeat [address] angiogram of the head and neck showed high-grade stenosis of the left proximal M1 segment with no other obvious abnormalities. Patient was seen and evaluated by neurology, appreciate recomme ndations. 2. Acute encephalopathy, probably secondary to above with possible alcohol withdrawal. 3. Acute hypoxic respiratory failure requiring BiPAP. Chest x-ray showed bibasilar infiltrate suggestive for atelectasis. Pneumonia less likely. Patient was started empirically on IV ceftriaxone awaiting calcitonin level 4. New onset atrial fibrillation with rapid ventricular response, started on metoprolol 25 mg twice daily. Currently rate controlled. No anticoagulation at this time given TPA on presentation 5. Troponin elevation, most likely secondary to #3 and 4. Echocardiogram pen ding. Cardiology consulted for further evaluation. 6. Alcohol abuse: Ativan as needed per [facility] protocol 7. Tobacco abuse 8. CODE STATUS, patient is DO NOT RESUSCITATE/DO NOT INTUBATE. Discussed with his at bedside Today, I reviewed his medication list and lab work results Awaiting repeat computed tomography scan of the brain MRI to be performed with respiratory status improved Continue ICU care Repeat lab work in the morning Gentle IV fluid hydration
--- NOTE | 2020-12-27 16:56 | P.PN ---
Progress Note - Text Progress Note Date: 12/27/20 Advanced Care Planning: Diagnoses: [Acute ischemic stroke, acute hypoxic respiratory failure, acute encephalopathy] Discussion: Person(s) present and participating in discussion:[ Patient's ] Summary:[] Today, I had a prolonged discussion with the patient's regarding goals of care and CODE STATUS. She informed me that her never wanted to be on life support and never wanted to be resuscitated. We discussed his current guarded prognosis. I answered all of her questions to her satisfaction. She would like patient to be DO NOT RESUSCITATE/DO NOT INTUBATE A total of [16] minutes of face to face time was spent discussing advanced care planning.
--- NOTE | 2020-12-27 16:58 | P.CRDCN ---
History of Present Illness Consult date: 12/27/20 History of present illness: This 65-year-old gentleman with history of muscular dystrophy was brought to the hospital with complaints of slurred speech, left-sided weakness and left-sided facial droop. Patient was diagnosed to have CVA and was treated with TPA. Patient had a CT angiogram which showed left-sided high-grade stenosis of the proximal M1 segment with unremarkable right-sided middle cerebral artery and bilateral anterior and posterior circulating arteries. Patient also was found to be positive for marijuana. Patient's blood pressure was initially high. Patient seemed to be agitated and moving all extremities except left side. His and BiPAP. Chest x-ray showed infiltrate and atelectasis and prominent pulmonary vascularity. His echo Cardigan showed severe left in color dysfunction with ejection fraction of about maybe 15-20%. Only basal inferior wall seemed to be moving. His troponins are mildly abnormal. These findings could be consistent with apical ballooning syndrome though chronic ischemic cardiac myopathy cannot be excluded. Patient's EKG showed atrial flutter. The duration of the atrial flutter is not clear at this time. We'll continue patient on beta lena and add CORINA inhibitor and a small dose of Aldactone and Lasix. Patient in the long run will require anticoagulation therapy. This will be initiated after cleared by neurology. Patient's prognosis is poor Review of Systems Not obtained Past Medical History Past Medical History: GERD/Reflux Additional Past Medical History / Comment(s): Myotonic muscular dystrophy, GERD, COPD History of Any Multi-Drug Resistant Organisms: None Reported Past Anesthesia/Blood Transfusion Reactions: No Reported Reaction Smoking Status: Current every day smoker Past Alcohol Use History: Daily Past Drug Use History: Marijuana - Past Family History family Family Medical History: No Reported History Additional Family Medical History / Comment(s): Myotonic muscular dystrophy Medications and Allergies Home Medications Medication Instructions Recorded Confirmed Type Albuterol Inhaler [Ventolin Hfa 2 puff INHALATION RT-QID PRN 12/26/20 12/26/20 History Inhaler] Methylphenidate HCl 20 mg PO BID 12/26/20 12/26/20 History Omeprazole [PriLOSEC] 20 mg PO DAILY 12/26/20 12/26/20 History Allergies Allergy/AdvReac Type Severity Reaction Status Date / Time No Known Allergies Allergy Verified 12/26/20 20:51 Physical Exam Vitals: Vital Signs Temp Pulse Resp BP Pulse Ox 12/27/20 16:28 80 12/27/20 16:11 84 12/27/20 11:53 102 H 12/27/20 11:39 98 12/27/20 09:50 105 H 31 H 89 L 12/27/20 09:40 117 H 34 H 145/116 87 L 12/27/20 09:30 33 H 91 L 12/27/20 09:27 98.9 F 115 H 24 91 L 12/27/20 09:04 115 H 18 139/95 90 L 12/27/20 07:54 120 H 12/27/20 07:45 112 H 16 128/87 91 L 12/27/20 07:44 118 H 12/27/20 07:15 110 H 20 139/96 92 L 12/27/20 06:01 93 20 136/86 93 L 12/27/20 05:00 99 22 130/100 91 L 12/27/20 04:00 98 18 124/92 94 L 12/27/20 03:00 94 25 H 126/90 93 L 12/27/20 02:47 97 22 126/80 92 L 12/27/20 02:00 130 H 18 139/100 91 L 12/27/20 00:50 101 H 35 H 120/65 88 L 12/27/20 00:40 122 H 24 126/99 12/27/20 00:35 112 H 12/27/20 00:27 111 H 12/27/20 00:20 83 L 12/26/20 23:30 90 20 118/83 95 12/26/20 23:00 91 18 137/100 95 12/26/20 22:30 89 20 122/95 94 L 12/26/20 22:00 92 18 129/100 95 12/26/20 21:30 97.7 F 92 18 136/99 95 12/26/20 21:16 94 12/26/20 21:02 86 12/26/20 21:00 87 20 147/98 95 12/26/20 20:45 90 18 137/94 95 12/26/20 20:30 92 20 137/114 94 L 12/26/20 20:15 94 20 140/84 94 L 12/26/20 20:00 85 18 130/105 94 L 12/26/20 19:50 87 18 123/104 94 L 12/26/20 19:35 85 18 146/83 94 L 12/26/20 19:30 85 20 170/113 93 L 12/26/20 19:21 95 20 175/122 93 L 12/26/20 19:15 80 20 175/122 92 L 12/26/20 19:10 97.8 F 87 20 171/123 92 L Intake and Output 12/27/20 12/27/20 12/27/20 06:59 14:59 22:59 Other: Weight 71.804 kg GENERAL EXAM: Patient is agitated and moving all extremities except left upper extremity HEENT: Normocephalic. NECK: No masses, no nuchal rigidity. CHEST: No chest wall deformity. LUNGS: Diminished breath sounds at bases HEART: S1 and S2 normal . Irregular heart rhythm ABDOMEN: Soft CENTRAL NERVOUS SYSTEM: As as per neurology Results 12/26/20 19:16 12/26/20 19:16 Cardiac Enzymes 12/26/20 12/26/20 12/26/20 Range/Units 19:16 19:16 22:01 AST 82 H (17-59) U/L Troponin I <0.012 0.337 H* (0.000-0.034) ng/mL 12/27/20 Range/Units 00:47 AST (17-59) U/L Troponin I 0.552 H* (0.000-0.034) ng/mL Coagulation 12/26/20 Range/Units 19:16 PT 11.1 (9.0-12.0) sec APTT 22.4 (22.0-30.0) sec Lipids 12/27/20 Range/Units 00:47 Triglycerides 101.0 (0.0-149.0) mg/dL Cholesterol 213 H (0-200) mg/dL HDL Cholesterol 96.0 H (40.0-60.0) mg/dL Cholesterol/HDL Ratio 2.22 CBC 12/26/20 Range/Units 19:16 WBC 7.7 (3.8-10.6) k/uL RBC 5.17 (4.30-5.90) m/uL Hgb 16.9 (13.0-17.5) gm/dL Hct 51.4 (39.0-53.0) % Plt Count 175 (150-450) k/uL Comprehensive Metabolic Panel 12/26/20 Range/Units 19:16 Sodium 138 (137-145) mmol/L Potassium 4.0 (3.5-5.1) mmol/L Chloride 107 (98-107) mmol/L Carbon Dioxide 24 (22-30) mmol/L BUN 14 (9-20) mg/dL Creatinine 0.66 (0.66-1.25) mg/dL Glucose 112 H (74-99) mg/dL Calcium 9.1 (8.4-10.2) mg/dL AST 82 H (17-59) U/L ALT 47 (4-49) U/L Alkaline Phosphatase 86 (38-126) U/L Total Protein 7.3 (6.3-8.2) g/dL Albumin 3.4 L (3.5-5.0) g/dL Current Medications Generic Name Dose Route Start Last Admin Trade Name Freq PRN Reason Stop Dose Admin Albuterol/Ipratropium 3 ml 12/27/20 08:00 12/27/20 16:10 Ipratropium-Albuterol 3 Ml Neb INHALATION 3 ml RT-QID MIKAEL Administration Albuterol/Ipratropium 3 ml 12/26/20 20:52 12/27/20 00:27 Ipratropium-Albuterol 3 Ml Neb INHALATION 3 ml RT-Q2H PRN Administration Shortness Of Breath Or Wheezing Atorvastatin Calcium 80 mg 12/27/20 09:00 Atorvastatin 80 Mg Tab PO DAILY MIKAEL Furosemide 20 mg 12/28/20 09:00 Furosemide 20 Mg Tab PO DAILY MIKAEL Ceftriaxone Sodium 1 gm/ 50 mls @ 100 mls/hr 12/26/20 21:30 12/27/20 00:57 Sodium Chloride IVPB 100 mls/hr Q24H MIKAEL Administration Lisinopril 2.5 mg 12/28/20 09:00 Lisinopril 2.5 Mg Tab PO DAILY MIKAEL Lorazepam 1 mg 12/27/20 00:58 12/27/20 01:10 Lorazepam 2 Mg/Ml Inj IV 1 mg Q2HR PRN Administration CIWA 8 or 9 Lorazepam 1 mg 12/27/20 00:58 12/27/20 02:11 Lorazepam 2 Mg/Ml Inj IV 0.5 mg Q1HR PRN Administration CIWA 10 to 15 Lorazepam 2 mg 12/27/20 00:58 Lorazepam 2 Mg/Ml Inj IV 12/29/20 00:59 Q10M PRN CIWA 16 or higher Metoprolol Tartrate 25 mg 12/27/20 09:00 Metoprolol Tartrate 25 Mg Tab PO BID MIKAEL Pantoprazole Sodium 40 mg 12/27/20 09:00 Pantoprazole 40 Mg/10 Ml Vial IVP DAILY MIKAEL Spironolactone 12.5 mg 12/28/20 09:00 Spironolactone 25 Mg Tab PO DAILY MIKAEL Thiamine HCl 100 mg 12/27/20 17:30 Thiamine 100 Mg Tab PO BID-W/MEALS MIKAEL Intake and Output 12/27/20 12/27/20 12/27/20 06:59 14:59 22:59 Other: Weight 71.804 kg Patient Weight 12/28/20 06:59 Weight 71.804 kg 12/26/20 19:16 12/26/20 19:16 EKG Interpretations (text) Atrial flutter with controlled and corresponds Assessment and Plan Assessment: This patient is admitted with a CVA and received thrombolytic therapy. He is found to have atrial flutter, the duration is not known. Echo Cardigan showed severe cardiomyopathy with only inferobasal segment showing some contraction. We will initiate him on beta blockers, CORINA inhibitor and Aldactone along with Lasix. Patient also would require anticoagulation therapy, when cleared by neurology. Neurology and pulmonology is also following. Prognosis is poor
[2020-12-27] MEDS ORDERED: DEXTROSE 5%-0.45% NACL 1,000 ML IV SCH (17:00)
--- NOTE | 2020-12-27 17:00 | ECHOF ---
Referral Reason:stroke MEASUREMENTS -------- HEIGHT: 180.3 cm WEIGHT: 71.7 kg BP: RVIDd: 2.1 cm (< 3.3) IVSd: 1.0 cm (0.6 - 1.1) LVIDd: 4.1 cm (3.9 - 5.3) LVPWd: 0.9 cm (0.6 - 1.1) IVSs: 1.3 cm LVIDs: 3.7 cm LVPWs: 1.1 cm Ao Diam: 3.0 cm (2.0 - 3.7) AV Cusp: 1.8 cm (1.5 - 2.6) LA Diam: 5.0 cm (2.7 - 3.8) MV EXCURSION: 18.742 mm (> 18.000) MV EF SLOPE: 230 mm/s (70 - 150) EPSS: 2.3 cm RAP: 5.00 mmHg RVSP: 28.35 mmHg FINDINGS -------- This was a technically difficult study with suboptimal views. The left ventricular size is normal. Left ventricular wall thickness is normal. Overall left vent ricular systolic function is severely impaired with, an EF between 20 - 25 %. Basal Segment Contrac ting only. The right ventricle is normal in size. The left atrium is moderately dilated. The right atrial size is normal. Lumason used The aortic valve is trileaflet and appears structurally normal. The mitral valve is normal. Mild mitral regurgitation is present. The tricuspid valve appears structurally normal. Mild tricuspid regurgitation present. Right vent ricular systolic pressure is normal at < 35 mmHg. There is no pulmonic regurgitation present. The aortic root size is normal. IVC Not well visulized. There is no pericardial effusion. CONCLUSIONS -------- 1. The left ventricular size is normal. 2. Left ventricular wall thickness is normal. 3. Overall left ventricular systolic function is severely impaired with, an EF between 20 - 25 %. 4. Basal Segment Joe only. 5. The left atrium is moderately dilated. 6. Mild mitral regurgitation is present. 7. Mild tricuspid regurgitation present. 8. There is no pericardial effusion. HEAD BAGGAGE PORTER: Rosie Marcus RDCS
[2020-12-27] MEDS: ATORVASTATIN 80 MG TAB PO SCH (17:29)
[2020-12-27] MEDS: METOPROLOL TARTRATE 25 MG TAB PO SCH ×2 (17:29→20:18)
[2020-12-27] MEDS: PANTOPRAZOLE 40 MG/10 ML VIAL IVP SCH (17:30)
[2020-12-27] MEDS: THIAMINE 100 MG TAB PO SCH (17:30)
[2020-12-27 18:02] LABS: Glucose,Whole Blood 124 mg/dL (75-99)
--- NOTE | 2020-12-27 18:11 | CT ---
EXAMINATION TYPE: CT brain wo con DATE OF EXAM: 12/27/2020 COMPARISON: Yesterday HISTORY: Post TPA /stroke CT DLP: 1147.4 mGycm Automated exposure control for dose reduction was used. There is cerebral cortical atrophy. There is some mild hypodensity in the right posterior frontal lob e. Margins are indistinct. There is no mass effect nor midline shift. There is no sign of intracrania l hemorrhage. There is white matter hypodensity in both frontal lobes. IMPRESSION: Cerebral atrophy. White matter hypodensity consistent with chronic small vessel ischemia in both fron ralph lobes. There is some subtle hypodensity right posterior frontal lobe that could be acute cortical infarct and is a change compared to yesterday.
[2020-12-27] MEDS ORDERED: ASPIRIN 300 MG SUPP RECTAL STA (20:28)
[2020-12-28 00:44] LABS: Glucose,Whole Blood 142 mg/dL (75-99)
[2020-12-28] MEDS: LORazepam 2 MG/ML INJ IV PRN (03:42)
[2020-12-28 05:15] LABS: Basophils % (A) 0 %; Eosinophils # (A) 0.1 k/uL (0-0.7); Eosinophils % (A) 0 %; HCT 54.4 % (39.0-53.0); HGB 17.3 gm/dL (13.0-17.5); Lymphocytes # (A) 1.4 k/uL (1.0-4.8); Lymphocytes % (A) 8 %; MCH 32.3 pg (25.0-35.0); MCHC 31.9 g/dL (31.0-37.0); MCV 101.2 fL (80.0-100.0); Macrocytosis Slight; Monocytes # (A) 0.7 k/uL (0-1.0); Monocytes % (A) 4 %; Neutrophils # (A) 14.6 k/uL (1.3-7.7); Neutrophils % (A) 87 %; Platelet Count 172 k/uL (150-450); RBC 5.38 m/uL (4.30-5.90); RDW 13.9 % (11.5-15.5); WBC 16.8 k/uL (3.8-10.6)
[2020-12-28 05:38] LABS: ALT 45 U/L (4-49); AST 114 U/L (17-59); African American GFR (CKD) >90 (>60 ml/min/1.73 sqM); Albumin 3.4 g/dL (3.5-5.0); Alkaline Phosphatase 74 U/L (38-126); Anion Gap 7 mmol/L; Blood Urea Nitrogen 20 mg/dL (9-20); Calcium 9.7 mg/dL (8.4-10.2); Carbon Dioxide 27 mmol/L (22-30); Chloride 108 mmol/L (98-107); Glucose 139 mg/dL (74-99); Non-African American GFR(CKD) >90 (>60 ml/min/1.73 sqM); Potassium 3.7 mmol/L (3.5-5.1); Sodium 142 mmol/L (137-145); Total Bilirubin 1.2 mg/dL (0.2-1.3); Total Protein 7.3 g/dL (6.3-8.2)
[2020-12-28] MEDS ORDERED: FUROSEMIDE 10 MG/ML 10 ML VIAL IV STA (06:21)
[2020-12-28] MEDS: THIAMINE 100 MG TAB PO SCH (06:30)
--- NOTE | 2020-12-28 06:32 | XR ---
EXAMINATION TYPE: XR chest 1V portable DATE OF EXAM: 12/28/2020 COMPARISON: 12/27/2020 HISTORY: Hypoxemia TECHNIQUE: Single frontal view of the chest is obtained. FINDINGS: There are diffuse multifocal areas of partially consolidative opacity in both lungs which are significantly worsened in the interval since the prior study. There is no pneumothorax or large p leural effusion. The heart size is normal. There is marked degeneration of the glenohumeral joints ri ght greater than left. IMPRESSION: Marked interval worsening in the appearance of the lungs with marked decrease in multifo allyn, diffuse airspace opacity consistent with airspace edema or inflammation
[2020-12-28 06:35] LABS: Glucose,Whole Blood 156 mg/dL (75-99)
[2020-12-28] MEDS: IPRATROPIUM-ALBUTEROL 3 ML NEB INHALATION SCH (07:20)
[2020-12-28] MEDS: METOPROLOL TARTRATE 25 MG TAB PO SCH (08:02)
[2020-12-28] MEDS: ATORVASTATIN 80 MG TAB PO SCH (08:02)
[2020-12-28 08:24] VITALS: TEMP 98.2
[2020-12-28] MEDS ORDERED: SPIRONOLACTONE 25 MG TAB PO SCH (09:00)
[2020-12-28] MEDS ORDERED: ASPIRIN 300 MG SUPP RECTAL SCH (09:00)
[2020-12-28] MEDS ORDERED: FUROSEMIDE 20 MG TAB PO SCH (09:00)
[2020-12-28] MEDS: methylPREDNISolone SOD SUCCI 40 MG/ML 1 ML VIAL IV SCH (09:35)
[2020-12-28] MEDS: niCARdipine 20 MG in SODIUM CHLORIDE 0.9% 192 ML IV SCH (09:35)
[2020-12-28] MEDS ORDERED: Potassium Replacement Protocol 1 EACH MISC MISCELLANE PRN (10:09)
[2020-12-28 10:10] VITALS: BP 96/61
[2020-12-28] MEDS ORDERED: MORPHINE SULFATE 4 MG/ML SYRINGE IV PRN (10:24)
[2020-12-28] MEDS: PANTOPRAZOLE 40 MG/10 ML VIAL IVP SCH (10:24)
[2020-12-28] MEDS ORDERED: MORPHINE SULFATE 2 MG/ML SYRINGE IV PRN (10:24)
[2020-12-28] MEDS ORDERED: LORazepam 2 MG/ML INJ IV PRN (10:24)
[2020-12-28] MEDS ORDERED: ATROPINE OPHTH SOLN 1% 5ML BTL SUBLINGUAL PRN (10:24)
[2020-12-28] MEDS ORDERED: POTASSIUM CHLORIDE 10 MEQ in WATER FOR INJECTION 1 100ML.BAG IVPB SCH (11:00)
[2020-12-28] MEDS ORDERED: SCOPOLAMINE 1.5MG/72HR PATCH TRANSDERM SCH (11:00)
[2020-12-28] MEDS ORDERED: MORPHINE SULFATE (100 MG/2 ML) 100 MG in SODIUM CHLORIDE 0.9% 100 ML IV SCH (11:00)
--- NOTE | 2020-12-28 12:12 | P.PN ---
Subjective Progress Note Date: 12/28/20 Principal diagnosis: CVA 65-year-old male, with a history of muscular dystrophy, who presents to the emergency department, with complaints of slurred speech, left-sided weakness, and left-sided facial droop. He apparently was found by his family, as he became weak on the left side, and slumped over to the left. There was no loss of consciousness. He did not hit his head. He was seen in the emergency room, and felt to be a good candidate for the administration of TPA. He got TPA 7:30 PM on December 26. For further observation and management, the patient was transferred to the intensive care unit. The patient is currently on BiPAP, with settings of IPAP 12, EPAP 6, and 100%. The patient not receiving any IV fluids. His drug screen was positive for tetrahydrocannabinol. The patient has no ALLERGIES, and apparently was only on an albuterol inhaler, methylphenidate, and omeprazole as an outpatient. CBC was completely normal. ETT, INR, and PTT were normal. Arterial blood gases on 100% showed a pO2 of 60, pCO2 48, and a pH is 7.35. Sodium 138, potassium 4, chlorides 107, CO2 24, anion gap 7, BUN 14, creatinine 0.66. Patient's glucose is 112, and troponins were 0.337, and 0.552. Urine showed trace leukocyte esterase, positive nitrite, 4 WBCs, and occasional bacteria. Brain CT was negative for anything acute. Chest x-ray was consistent with increased infiltrate and/or atelectasis in the lower lobes, with increased pulmonary vascularity. CT angiography showed focal high-grade stenosis of the left proximal M1 segment, and unremarkable right middle cerebral artery and bilateral anterior and posterior circulating arteries. The patient is seen today 12/28/2020. He is unresponsive to verbal stimuli. He remains on BiPAP 12/600% FiO2. O2 saturations in the mid 70s to low 80s. D5 .45 at 50 mL per hour. His was given Lasix 60 mg IVP 1 today. No significant urine output. He is currently afebrile. Follow-up computed tomography scan of the brain revealed cerebral atrophy. White matter hypodensity consistent with chronic small vessel ischemia both frontal lobes. There is some subtle hypodensity in the right posterior frontal lobe that could be acute cortical infarct and is a change compared to the previous. Chest x-ray revealed marked interval worsening appearance of lungs with markedly increased and multifocal, diffuse airspace opacity consistent with airspace edema or inflammation. White count 16.8. Hemoglobin 17.3. Sodium 142. Potassium 3.7. Creatinine 0.62. AST 114. ALT 45. Echocardiogram revealed severely impaired left ventricular systolic function with ejection fraction 20-25%. Objective - Vital Signs Vital signs: Vital Signs Temp 98.2 F 12/28/20 08:00 Pulse 105 H 12/28/20 10:00 Resp 10 L 12/28/20 10:00 BP 96/61 12/28/20 10:00 Pulse Ox 81 L 12/28/20 10:00 Intake & Output 12/27/20 12/28/20 12/28/20 18:59 06:59 18:59 Intake Total 100 550 200 Output Total 705 375 600 Balance -605 175 -400 Weight 71.804 kg 68.5 kg Intake: IV 100 550 200 Dextrose 5%-0.45% NaCl 1, 100 550 200 000 ml @ 50 mls/hr IV . Q20H [facility] Rx#:[id number] Output: Urine 705 375 600 Other: Voiding Method Indwelling Catheter Indwelling Catheter Indwelling Catheter - Exam Unresponsive 65-year-old male patient, currently on BiPAP. Saturations are 76- 81 %. HEENT examination is grossly unremarkable. Left facial droop. Neck supple. Full range of motion. No adenopathy thyromegaly or neck vein distention. Cardiovascular examination reveals regular rhythm rate. S1-S2 normal. No S3 or S4. No discernible murmur noted. Heart sounds are distant. Heart rate 105 bpm. Lungs reveal scattered bilateral rhonchi. Crackles in the bases. Breath sounds equal bilaterally. Abdomen soft bowel sounds are heard. No masses or tenderness. Extremities are intact. No cyanosis clubbing or edema. Skin is very dry. Neurologic examination is difficult to assess. Appears not to be moving the left side, left upper extremity more than left lower extremity. - Labs CBC & Chem 7: 12/28/20 04:45 12/28/20 04:45 Labs: Abnormal Lab Results - Last 24 Hours (Table) 12/27/20 12/27/20 12/27/20 Range/Units 00:47 00:47 18:00 WBC (3.8-10.6) k/uL Hct (39.0-53.0) % MCV (80.0-100.0) fL Neutrophils # (1.3-7.7) k/uL Chloride (98-107) mmol/L Creatinine (0.66-1.25) mg/dL Glucose (74-99) mg/dL POC Glucose (mg/dL) 124 H (75-99) mg/dL AST (17-59) U/L Albumin (3.5-5.0) g/dL Cholesterol 213 H (0-200) mg/dL HDL Cholesterol 96.0 H (40.0-60.0) mg/dL Procalcitonin 0.11 H (0.02-0.09) ng/mL 12/28/20 12/28/20 12/28/20 Range/Units 00:43 04:45 04:45 WBC 16.8 H (3.8-10.6) k/uL Hct 54.4 H (39.0-53.0) % MCV 101.2 H (80.0-100.0) fL Neutrophils # 14.6 H (1.3-7.7) k/uL Chloride 108 H (98-107) mmol/L Creatinine 0.62 L (0.66-1.25) mg/dL Glucose 139 H (74-99) mg/dL POC Glucose (mg/dL) 142 H (75-99) mg/dL AST 114 H (17-59) U/L Albumin 3.4 L (3.5-5.0) g/dL Cholesterol (0-200) mg/dL HDL Cholesterol (40.0-60.0) mg/dL Procalcitonin (0.02-0.09) ng/mL 12/28/20 Range/Units 06:34 WBC (3.8-10.6) k/uL Hct (39.0-53.0) % MCV (80.0-100.0) fL Neutrophils # (1.3-7.7) k/uL Chloride (98-107) mmol/L Creatinine (0.66-1.25) mg/dL Glucose (74-99) mg/dL POC Glucose (mg/dL) 156 H (75-99) mg/dL AST (17-59) U/L Albumin (3.5-5.0) g/dL Cholesterol (0-200) mg/dL HDL Cholesterol (40.0-60.0) mg/dL Procalcitonin (0.02-0.09) ng/mL Assessment and Plan Assessment: 1 Acute CVA, with slurred speech, left facial droop, and left-sided weakness, S/P TPA. Mainly unresponsive. Follow-up computed tomography scan of the brain revealed white matter hypodensity consistent with chronic small vessel ischemia in both frontal lobes. There is some subtle hypodensity right posterior frontal lobe that could be an acute cortical infarct and is changed compared to yesterday 2 History of gastroesophageal reflux disease. 3 History of myotonic muscular dystrophy. 4 History of gastroesophageal reflux disease. 5 New-onset atrial fibrillation. 6 History of ongoing tobacco use with nicotine addiction, with possible underlying COPD. 7 History of alcohol abuse, rule out alcohol withdrawal syndrome. Plan: The patient was seen and evaluated by Dr. Vasquez He spoke with his who is present at the bedside Overall prognosis is poor She wishes to go to forward with comfort care measures I, the cosigning physician, performed a history & physical examination of the p atient. Lungs sounds with bilateral rhonchi, crackles in bases. Maintaining good O2 saturations in the 70-80s on 100% FiO2 via BiPAP 03/09. I discussed the assessment and plan of care with my nurse practitioner, Bella Kurtz. I attest to the above note as dictated by her.
--- NOTE | 2020-12-28 12:41 | P.PN ---
Subjective Progress Note Date: 12/28/20 This patient with a muscular dystrophy was admitted with findings of CVA. And received thrombolytic therapy. Patient remained unresponsive. Patient is on BiPAP. His echo Cardigan showed severely impaired LV function. Patient chest x-ray shows worsening infiltrates bilaterally. Urine output is low. Patient is in atrial fibrillation with controlled and corresponds. Repeat computed tomography scan showed cerebral atrophy and some ischemic changes. Patient's prognosis overall is poor. Dr. Lisa discussed with family. Condition was made to make him comfort care. Objective - Vital Signs Vital signs: Vital Signs Temp 98.2 F 12/28/20 08:00 Pulse 105 H 12/28/20 10:00 Resp 10 L 12/28/20 10:00 BP 96/61 12/28/20 10:00 Pulse Ox 81 L 12/28/20 10:00 Intake & Output 12/27/20 12/28/20 12/28/20 18:59 06:59 18:59 Intake Total 100 550 200 Output Total 705 375 600 Balance -605 175 -400 Weight 71.804 kg 68.5 kg Intake: IV 100 550 200 Dextrose 5%-0.45% NaCl 1, 100 550 200 000 ml @ 50 mls/hr IV . Q20H [facility] Rx#:[id number] Output: Urine 705 375 600 Other: Voiding Method Indwelling Catheter Indwelling Catheter Indwelling Catheter - Exam GENERAL EXAM: Patient is cachectic and unresponsive HEENT: Normocephalic. NECK: No masses, no nuchal rigidity. CHEST: No chest wall deformity. LUNGS: Diffuse rhonchi HEART: S1 and S2 irregular heart sounds ABDOMEN: Soft SKIN: No rashes CENTRAL NERVOUS SYSTEM: Deferred EXTREMITIES: Thin and emacerated - Labs CBC & Chem 7: 12/28/20 04:45 12/28/20 04:45 Labs: Abnormal Lab Results - Last 24 Hours (Table) 12/27/20 12/27/20 12/27/20 Range/Units 00:47 00:47 18:00 WBC (3.8-10.6) k/uL Hct (39.0-53.0) % MCV (80.0-100.0) fL Neutrophils # (1.3-7.7) k/uL Chloride (98-107) mmol/L Creatinine (0.66-1.25) mg/dL Glucose (74-99) mg/dL POC Glucose (mg/dL) 124 H (75-99) mg/dL AST (17-59) U/L Albumin (3.5-5.0) g/dL Cholesterol 213 H (0-200) mg/dL HDL Cholesterol 96.0 H (40.0-60.0) mg/dL Procalcitonin 0.11 H (0.02-0.09) ng/mL 12/28/20 12/28/20 12/28/20 Range/Units 00:43 04:45 04:45 WBC 16.8 H (3.8-10.6) k/uL Hct 54.4 H (39.0-53.0) % MCV 101.2 H (80.0-100.0) fL Neutrophils # 14.6 H (1.3-7.7) k/uL Chloride 108 H (98-107) mmol/L Creatinine 0.62 L (0.66-1.25) mg/dL Glucose 139 H (74-99) mg/dL POC Glucose (mg/dL) 142 H (75-99) mg/dL AST 114 H (17-59) U/L Albumin 3.4 L (3.5-5.0) g/dL Cholesterol (0-200) mg/dL HDL Cholesterol (40.0-60.0) mg/dL Procalcitonin (0.02-0.09) ng/mL 12/28/20 Range/Units 06:34 WBC (3.8-10.6) k/uL Hct (39.0-53.0) % MCV (80.0-100.0) fL Neutrophils # (1.3-7.7) k/uL Chloride (98-107) mmol/L Creatinine (0.66-1.25) mg/dL Glucose (74-99) mg/dL POC Glucose (mg/dL) 156 H (75-99) mg/dL AST (17-59) U/L Albumin (3.5-5.0) g/dL Cholesterol (0-200) mg/dL HDL Cholesterol (40.0-60.0) mg/dL Procalcitonin (0.02-0.09) ng/mL Assessment and Plan Assessment: This patient is admitted with a CVA and received thrombolytic therapy. He is found to have atrial flutter, the duration is not known. Echo Cardigan showed severe cardiomyopathy with only inferobasal segment showing some contraction. We will initiate him on beta blockers, CORINA inhibitor and Aldactone along with Lasix. Patient also would require anticoagulation therapy, when cleared by neurology. Neurology and pulmonology is also following. Prognosis is poor. 12/28/2020: Patient's condition remains critical. Patient is unresponsive . Patient has severe cardiomyopathy. The international recruiter discussed with family and made patient comfort care
--- NOTE | 2020-12-28 13:38 | P.PN ---
Subjective Patient was seen and evaluated by me today. He is obtunded and currently on comfort measures. His at bedside was tearful. She had few questions for me that I answered to her satisfaction. Objective - Vital Signs Vital signs: Vital Signs Temp 98.2 F 12/28/20 08:00 Pulse 105 H 12/28/20 10:00 Resp 10 L 12/28/20 10:00 BP 96/61 12/28/20 10:00 Pulse Ox 81 L 12/28/20 10:00 Intake & Output 12/27/20 12/28/20 12/28/20 18:59 06:59 18:59 Intake Total 100 550 200 Output Total 705 375 600 Balance -605 175 -400 Weight 71.804 kg 68.5 kg Intake: IV 100 550 200 Dextrose 5%-0.45% NaCl 1, 100 550 200 000 ml @ 50 mls/hr IV . Q20H [facility] Rx#:[id number] Output: Urine 705 375 600 Other: Voiding Method Indwelling Catheter Indwelling Catheter Indwelling Catheter - Exam General: The patient is obtunded, he is wearing a BiPAP. Eye: there is normal conjunctiva bilaterally. Neck: The neck is supple, there is no JVD. Cardiovascular: Normal S1-S2, no S3-S4, no murmurs. Respiratory: Lungs clear to auscultation bilaterally Gastrointestinal: Abdomen is soft, nontender Musculoskeletal: There is no pedal edema. Skin: Skin is warm and dry - Labs CBC & Chem 7: 12/28/20 04:45 12/28/20 04:45 Labs: Abnormal Lab Results - Last 24 Hours (Table) 12/27/20 12/27/20 12/27/20 Range/Units 00:47 00:47 18:00 WBC (3.8-10.6) k/uL Hct (39.0-53.0) % MCV (80.0-100.0) fL Neutrophils # (1.3-7.7) k/uL Chloride (98-107) mmol/L Creatinine (0.66-1.25) mg/dL Glucose (74-99) mg/dL POC Glucose (mg/dL) 124 H (75-99) mg/dL AST (17-59) U/L Albumin (3.5-5.0) g/dL Cholesterol 213 H (0-200) mg/dL HDL Cholesterol 96.0 H (40.0-60.0) mg/dL Procalcitonin 0.11 H (0.02-0.09) ng/mL 12/28/20 12/28/20 12/28/20 Range/Units 00:43 04:45 04:45 WBC 16.8 H (3.8-10.6) k/uL Hct 54.4 H (39.0-53.0) % MCV 101.2 H (80.0-100.0) fL Neutrophils # 14.6 H (1.3-7.7) k/uL Chloride 108 H (98-107) mmol/L Creatinine 0.62 L (0.66-1.25) mg/dL Glucose 139 H (74-99) mg/dL POC Glucose (mg/dL) 142 H (75-99) mg/dL AST 114 H (17-59) U/L Albumin 3.4 L (3.5-5.0) g/dL Cholesterol (0-200) mg/dL HDL Cholesterol (40.0-60.0) mg/dL Procalcitonin (0.02-0.09) ng/mL 12/28/20 Range/Units 06:34 WBC (3.8-10.6) k/uL Hct (39.0-53.0) % MCV (80.0-100.0) fL Neutrophils # (1.3-7.7) k/uL Chloride (98-107) mmol/L Creatinine (0.66-1.25) mg/dL Glucose (74-99) mg/dL POC Glucose (mg/dL) 156 H (75-99) mg/dL AST (17-59) U/L Albumin (3.5-5.0) g/dL Cholesterol (0-200) mg/dL HDL Cholesterol (40.0-60.0) mg/dL Procalcitonin (0.02-0.09) ng/mL Assessment and Plan Assessment: This is a 65-year-old male with complex past medical history significant for underlying muscular dystrophy that presented to the emergency room with sudden onset left-sided weakness and slurred speech. Patient was evaluated in the ER and admitted to the hospital for further management of his medical problems noted below. His overall condition continued to deteriorate and eventually his decided to make him comfort care. Below is a list of his medical problems addressed during this hospitalization. 1. Acute ischemic stroke with left hemiplegia, status post TPA in the emergency room. Computed tomography scan on presentation showed no acute intracranial findings. CT angiogram of the head and neck showed high-grade stenosis of the left proximal M1 segment with no other obvious abnormalities. Patient was seen and evaluated by neurology, appreciate recommendations. 2. Acute encephalopathy, probably secondary to above with possible alcohol withdrawal. 3. Acute hypoxic respiratory failure requiring BiPAP. Chest x-ray showed bibasilar infiltrate suggestive for atelectasis. 4. New onset atrial fibrillation with rapid ventricular response 5. Troponin elevation, most likely secondary to #3 and 4. Cardiology consulted for further evaluation. 6. Alcohol abuse: Ativan as needed per [facility] protocol 7. Tobacco abuse 8. CODE STATUS, patient is DO NOT RESUSCITATE/DO NOT INTUBATE. Discussed with his at bedside Continue comfort measures.
[2020-12-28 14:09] VITALS: PULSE 113; RESP 9
--- NOTE | 2020-12-28 20:45 | P.PN ---
Progress Note - Text Progress Note Date: 12/28/20 Patient's nurse perfect served that patient is not doing very well right now. He is on BiPAP 100% FiO2 and the saturations are in the 70s to 80s. He is DO NOT RESUSCITATE and family has decided on comfort care measures. Neurology will sign off.
--- NOTE | 2020-12-29 07:42 | P.DS ---
Providers Date of admission: 12/26/20 20:21 Expected date of discharge: 12/29/20 Attending physician: Victorino Garza MD Consults: 12/26/20 20:23 Consult Physician Routine Consulting Provider: Guido Vasquez Consult Reason/Comments: copd exacerbation, cva with tpa, new onset afib/flutter Do you want consulting provider notified?: Already Contacted 12/26/20 20:24 Consult Physician Routine Consulting Provider: [facility] Consult Reason/Comments: new onset afib/aflutter Do you want consulting provider notified?: Yes Consult Physician Routine Consulting Provider: Lory Mcnulty Consult Reason/Comments: cva with tpa Do you want consulting provider notified?: Already Contacted Primary care physician: Casye High MD Hospital Course: Patient on comfort care/hospice. For the exact time of is referred to nursing staff documentation. This is a 65-year-old male with complex past medical history significant for underlying muscular dystrophy that presented to the emergency room with sudden onset left-sided weakness and slurred speech. Patient was evaluated in the ER and admitted to the hospital for further management of his medical problems noted below. His overall condition continued to deteriorate and eventually his decided to make him comfort care. Below is a list of his medical problems addressed during this hospitalization. 1. Acute ischemic stroke with left hemiplegia, status post TPA in the emergency room. Computed tomography scan on presentation showed no acute intracranial findings. CT angiogram of the head and neck showed high-grade stenosis of the left proximal M1 segment with no other obvious abnormalities. Patient was seen and evaluated by neurology, appreciate recommendations. 2. Acute encephalopathy, probably secondary to above with possible alcohol withdrawal. 3. Acute hypoxic respiratory failure requiring BiPAP. Chest x-ray showed bibasilar infiltrate suggestive for atelectasis. 4. New onset atrial fibrillation with rapid ventricular response 5. Troponin elevation, most likely secondary to #3 and 4. Cardiology consulted for further evaluation. 6. Alcohol abuse: Ativan as needed per [facility] protocol 7. Tobacco abuse 8. CODE STATUS, patient is DO NOT RESUSCITATE/DO NOT INTUBATE. Discussed with his at bedside Patient Condition at Discharge: Serious Plan - Discharge Summary Discharge Rx Participant: Yes New Discharge Prescriptions: No Action Omeprazole [PriLOSEC] 20 mg PO DAILY Methylphenidate HCl 20 mg PO BID Albuterol Inhaler [Ventolin Hfa Inhaler] 2 puff INHALATION RT-QID PRN PRN Reason: Shortness Of Breath Discharge Medication List Albuterol Inhaler [Ventolin Hfa Inhaler] 2 puff INHALATION RT-QID PRN 12/26/20 [History] Methylphenidate HCl 20 mg PO BID 12/26/20 [History] Omeprazole [PriLOSEC] 20 mg PO DAILY 12/26/20 [History] Follow up Appointment(s)/Referral(s): Juli Rojas [facility] [REFERRING] - 1-2 days Discharge Disposition: - Preliminary Cause of Preliminary Cause of : Acute hypoxic respiratory failure
== END 2020-12-28 22:20 | disposition expired | DRG 61 ==
LOC: EC 18:52 → 2SICU 20:21
PROVIDERS: ADMIT Internal Medicine; ATTEND Internal Medicine
PROC: 3E03317 Introduction of Other Thrombolytic into Peripheral Vein, Percutaneous Approach (ICD-10-PCS; principal; 2020-12-26)
PROC: 5A09457 Assistance with Respiratory Ventilation, 24-96 Consecutive Hours, Continuous Positive Airway Pressure (ICD-10-PCS; 2020-12-27)
DX: I63.419 Cerebral infarction due to embolism of unspecified middle cerebral artery (principal); J96.01 Acute respiratory failure with hypoxia; F10.139 Alcohol abuse with withdrawal, unspecified; N39.0 Urinary tract infection, site not specified; I42.9 Cardiomyopathy, unspecified; I48.92 Unspecified atrial flutter; J44.1 Chronic obstructive pulmonary disease with (acute) exacerbation; J98.11 Atelectasis; G81.04 Flaccid hemiplegia affecting left nondominant side; G31.2 Degeneration of nervous system due to alcohol; R77.8 Other specified abnormalities of plasma proteins; R47.81 Slurred speech; R29.705 NIHSS score 5; F17.210 Nicotine dependence, cigarettes, uncomplicated; G71.11 Myotonic muscular dystrophy; I10 Essential (primary) hypertension; I48.91 Unspecified atrial fibrillation; K21.9 Gastro-esophageal reflux disease without esophagitis; Z20.822 Contact with and (suspected) exposure to COVID-19; Z51.5 Encounter for palliative care; Z66 Do not resuscitate; Z79.899 Other long term (current) drug therapy; Z82.69 Family history of other diseases of the musculoskeletal system and connective tissue; Z71.6 Tobacco abuse counseling; Z78.1 Physical restraint status
CPT/HCPCS: 36415; 36600; 37195; 70450; 70496; 70498; 71045; 80053; 80061; 80306; 80320; 81001; 82805; 83880; 84145; 84484; 85025; 85610; 85730; 87635; 93005; 93306; 94640; 94660; 96374; 96375; 99291